=== PATIENT | male | born 1990 | race Caucasian/White ===

== ENCOUNTER → 2022-04-16 | Day surgery (SDC) | payer OTHER ==
[2022-04-15 16:36] LABS: SARS-CoV-2 Antigen Rapid Res Negative (Negative)
[~2022-04-16] MED LIST: ACETAMINOPHEN 500 MG TAB PO ONE; BUPIVACAINE 0.25% PF 10 ML VIAL IJ ONE; BUPIVACAINE 0.25% PF 30 ML VIAL ONE; CEFAZOLIN 2 GM IN 0.9% NACL 2 GM/100 ML BAG ONE; CELECOXIB 100 MG CAPSULE PO ONE; FENTANYL CITR 100 MCG/2 ML ONE; LIDOCAINE 2% MPF 5 ML VIAL ONE; MIDAZOLAM HCL 2 MG/2 ML INJ ONE; ONDANSETRON 4 MG/2 ML VIAL ONE; Ringers Lactate 1,000 ML IV ONE; SODIUM HYPOCHLORITE 0.25% 473 ML ONE; propofoL 200 MG/20 ML VIAL IV ONE
--- NOTE | 2022-04-16 11:14 | P.OP ---
Preoperative diagnosis: LEFT lower back cyst Postoperative diagnosis: LEFT lower back cyst Primary procedure: Wide local excision of LEFT lower back cyst Anesthesia: GETA + Local Estimated blood loss: <5cc Specimen: tissue Findings: ~ 4cm x 2cm ellipse LEFT lower back cyst Complications: Other (no surgical issues, patient had a LEFT bundle branch block on EKG) Transferred to: Recovery Room Condition: Good
[2022-04-16 12:11] VITALS: BP 137/86; TEMP 98; O2SAT 97
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
--- NOTE | 2022-04-17 13:57 | EKG ---
Test Date: 2022-04-16 Test Time: 10:48:07 Plumbing Technician: FREDI MEASUREMENT RESULTS: Intervals: Rate: 85 AK: 148 QRSD: 150 QT: 422 QTc: 502 Sanderson: P: 53 AK: 148 QRS: -14 T: 119 INTERPRETIVE STATEMENTS: Normal sinus rhythm Left bundle branch block Abnormal ECG No previous ECG available for comparison Electronically Signed On 04-17-22 13:55:50 CDT by Lenoel Aguilera
== END | disposition home or self-care (01) ==
LOC: OR 09:04
PROVIDERS: ATTEND Surgery
PROC: 0JB70ZZ Excision of Back Subcutaneous Tissue and Fascia, Open Approach (ICD-10-PCS; principal; 2022-04-16 10:30)
DX: L72.0 Epidermal cyst (principal); Z20.822 Contact with and (suspected) exposure to COVID-19
CPT/HCPCS: 93005; 36415; 88305; 87811; 11404; J2704; J2001; J2250; J3010; J0690; J7120; J2405; 88304